=== PATIENT | female | born 1985 | race Caucasian/White ===

== ENCOUNTER → 2024-03-18 11:53 | Outpatient (BNVA) | payer MEDICAID, SELFPAY | PROVIDERS: Family Provider Family Medicine; Visit Provider Student in an Organized Health Care Education/Training Program | DX: Z11.59 Encounter for screening for other viral diseases (principal); Z11.4 Encounter for screening for human immunodeficiency virus [HIV]; B19.20 Unspecified viral hepatitis C without hepatic coma; B18.2 Chronic viral hepatitis C | CPT/HCPCS: 80053; 85025; 86705; 86706; 86709; 86803; 87340; 87522; 87806; 87902 ==

== ENCOUNTER 2024-04-04 06:22 | Outpatient (CLI) | payer MEDICAID, SELFPAY ==
--- NOTE | 2024-04-04 06:30 | US_ITS ---
WS: [id number] RIGHT UPPER QUADRANT ULTRASOUND HISTORY: assess for cirrhosis, hep C + COMPARISON: None available. Liver: 13.7 cm in length. Normal size liver and echogenicity. No bile duct dilatation or mass. Portal Vein: Normal hepatopetal flow with monophasic waveform. Gallbladder: Normally distended gallbladder with no stones or wall thickening. CBD: 0.4 cm Pancreas: Normal size and echogenicity. Right kidney: 9.9 cm in length. Normal size and echogenicity. No hydronephrosis or mass. Aorta and IVC: Unremarkable abdominal aorta and IVC. No ascites. US/US liver [id number] IMPRESSION: Normal right upper quadrant ultrasound.
== END 2024-04-04 06:23 | disposition home or self-care (01) ==
LOC: RAD 06:24
PROVIDERS: Visit Provider Student in an Organized Health Care Education/Training Program
DX: B19.20 Unspecified viral hepatitis C without hepatic coma (principal)
CPT/HCPCS: 76705

== ENCOUNTER 2024-04-07 10:15 | Outpatient (CLI) | payer MEDICAID, SELFPAY ==
--- NOTE | 2024-04-07 10:16 | MM_ITS ---
WS: [id number] DIAGNOSTIC BILATERAL DIGITAL BREAST TOMOSYNTHESIS MAMMOGRAPHY WITH CAD RIGHT breast ultrasound, limited. HISTORY: RIGHT breast palpable abnormality. Palpable abnormality has since resolved. COMPARISON: None available. TECHNIQUE: Bilateral craniocaudad, mediolateral oblique, and mediolateral views are submitted with to pamela and JUDITH. Spot compression bilateral CC and bilateral MLO. Computer aided detection utilize d. Breast composition: The breasts are heterogeneously dense, which may obscure small masses. Palpable abnormality in the medial RIGHT breast was superficial near 3:00. There is no underlying mas s identified today. Patient does not feel a palpable abnormality today. There are additional scattere d fibroglandular densities throughout each breast for which spot compression views were performed. No persistent abnormality. Benign lymph node in the lateral RIGHT breast. RIGHT breast ultrasound, limited. Ultrasound directed to the prior palpable mass site. There is no definite mass identified. Patient wa s unable to find the exact location of the prior mass. There is a tiny cyst measuring about 3 mm at 3 :00 which probably is not palpable. May be the residual of a larger cyst. MM/MM diag BI tomosynthesis [id number] IMPRESSION: BI-RADS: 2 - Benign FOLLOW UP: 1 Year Follow-up
== END 2024-04-07 10:16 | disposition home or self-care (01) ==
LOC: RAD 10:15
PROVIDERS: PCP Family Medicine; Visit Provider Family Medicine
DX: N60.01 Solitary cyst of right breast (principal); R92.333 Mammographic heterogeneous density, bilateral breasts
CPT/HCPCS: 76642; 77062; G0279

== ENCOUNTER 2024-06-30 09:28 | Outpatient (CLI) | payer MEDICAID, SELFPAY ==
--- NOTE | 2024-06-30 09:40 | XR_ITS ---
WS: [id number] Exam: XR lumbar spine 2-3V* [id number] Date/Time of Exam: 06/30/2024 9:48 AM Reason For Exam: LOW BACK PAIN No acute fracture. Degenerative disc change at L5-S1 and L2-3. Posterior bone spurs along the lower endplate of L4 and L5. L4-5 laminectomy defect. Mild scoliosis. XR/XR lumbar spine 2-3V* [id number] IMPRESSION: 1. Degenerative changes and slight scoliosis. 2. L4-5 laminectomy defect. No fracture.
== END 2024-06-30 09:29 | disposition home or self-care (01) ==
PROVIDERS: PCP Family Medicine; Visit Provider Nurse Practitioner Family
DX: M47.896 Other spondylosis, lumbar region (principal); M47.897 Other spondylosis, lumbosacral region; M46.06 Spinal enthesopathy, lumbar region; M96.89 Other intraoperative and postprocedural complications and disorders of the musculoskeletal system; M41.86 Other forms of scoliosis, lumbar region
CPT/HCPCS: 72100